=== PATIENT | male | born 1975 | race Caucasian/White ===

== ENCOUNTER 2020-05-15 14:27 | Emergency (ER) | payer MEDICAID ==
[~2020-05-15] VITALS: Ht 175.3 cm; Wt 110.0 kg
--- NOTE | 2020-05-15 14:56 | NUR ---
PT ENDORSED TO BREAK RN
[2020-05-15] MEDS ORDERED: IBUPROFEN 800 MG TABLET PO ONE (15:00)
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
[2020-05-15 15:35] VITALS: BP 123/82
[2020-05-15] MEDS ORDERED: IBUPROFEN 800 MG TABLET ONE (15:40)
--- NOTE | 2020-05-15 15:43 | NUR ---
MOTRIN GIVEN PER EMAR. AWAITING DC DOCUMENTS.
== END 2020-05-15 16:10 | disposition home or self-care (01) ==
LOC: ED 15:45
DX: S93.491A Sprain of other ligament of right ankle, initial encounter (principal); M79.89 Other specified soft tissue disorders; W19.XXXA Unspecified fall, initial encounter; Y93.01 Activity, walking, marching and hiking; Y92.488 Other paved roadways as the place of occurrence of the external cause; Y99.8 Other external cause status
CPT/HCPCS: 99283